=== PATIENT | male | born 1955 | race Caucasian/White ===

== ENCOUNTER 2021-01-02 06:17 | Inpatient (IN) ==
[2021-01-02] MEDS ORDERED: CeFAZolin Syr 2,000MG/20 ML 2,000 MG/20 ML SYRINGE IVPB ONE (06:39)
[2021-01-02] MEDS ORDERED: Ringers Solution, Lactated 1,000 ML IVC SCH (06:45)
[2021-01-02] MEDS ORDERED: *HR* Methadone 10 MG TABLET PO ONE (07:00)
[2021-01-02] MEDS ORDERED: Famotidine 20 MG/2 ML VIAL IVP ONE (07:00)
[2021-01-02] MEDS ORDERED: Acetaminophen IV 1,000 MG/100 ML BAG IVPB ONE (07:00)
[2021-01-02] MEDS ORDERED: *HR* Succinylcholine 200 MG/10 ML VIAL IVP ONE (07:16)
[2021-01-02] MEDS ORDERED: Lidocaine -MPF 2% 2 ML VIAL ONE ×2 (07:16)
[2021-01-02] MEDS ORDERED: *HR* Propofol 200 MG/20 ML VIAL IVP ONE (07:16)
[2021-01-02] MEDS ORDERED: Ondansetron 4 MG/2 ML VIAL ONE (07:16)
[2021-01-02] MEDS ORDERED: *HR* FentaNYL (PF) 100 MCG/2 ML VIAL ONE (07:16)
[2021-01-02] MEDS ORDERED: *HR* Rocuronium Bromide 50 MG/5 ML VIAL ONE (07:16)
[2021-01-02] MEDS ORDERED: Lidocaine HCL 4 ML Topical Solution (Laryng-O-Jet Kit Sterile Pak) TP ONE (07:16)
[2021-01-02] MEDS ORDERED: *HR* Midazolam HCl 2 MG/2 ML VIAL ONE (07:16)
[2021-01-02] MEDS ORDERED: *HR* Phenylephrine 10 MG/ML VIAL ONE (07:16)
[2021-01-02] MEDS ORDERED: Dexamethasone 4 MG/ML VIAL ONE (07:16)
[2021-01-02] MEDS ORDERED: *HR* Remifentanil 1 MG VIAL IVP ONE ×3 (07:17→11:20)
[2021-01-02] MEDS ORDERED: Lacri-Lube 3.5 GM TUBE ONE (07:20)
[2021-01-02] MEDS ORDERED: Heparin 1,000 UNITS/500 mL 500 ML ONE (07:33)
[2021-01-02] MEDS ORDERED: Bacitracin 50,000 UNIT, Polymyxin B Sulfate 500,000 UNIT, Sodium Chloride IRRigation 1,... IR ONE (07:45)
[2021-01-02] MEDS ORDERED: *HR* PHENYLEPHRINE 1,000 MCG/10 ML SYRINGE IVP ONE ×2 (08:16→11:11)
[2021-01-02] MEDS ORDERED: *HR* Labetalol 20 MG/4 ML SYRINGE IVP ONE (12:00)
[2021-01-02] MEDS ORDERED: Ondansetron 4 MG/2 ML VIAL IVP PRN ×2 (13:11→15:56)
[2021-01-02] MEDS ORDERED: *HR* Midazolam HCl 2 MG/2 ML VIAL IVP PRN (13:11)
[2021-01-02] MEDS ORDERED: *HR* Midazolam HCl 5 MG/5 ML VIAL IVP ONE (13:14)
[2021-01-02] MEDS: *HR* HYDROmorphone (PF) 1 MG/ML SYRINGE IVP PRN ×4 (13:15→14:00)
[2021-01-02] MEDS ORDERED: Insulin Human Regular 20 UNIT in 0.9 % Sodium Chloride 10 ML IV ONE ×2 (13:29→14:40)
[2021-01-02] MEDS ORDERED: Naloxone 0.4 MG/ML INJ IVP PRN (15:56)
[2021-01-02] MEDS ORDERED: Acetaminophen 325 MG TABLET PO PRN (15:56)
[2021-01-02] MEDS ORDERED: D5% in Water 1,000 ML IVC PRN (16:24)
[2021-01-02] MEDS ORDERED: Dextrose Gel 15 GM/37.5 ML TUBE PO PRN ×2 (16:24)
[2021-01-02] MEDS ORDERED: *HR* Dextrose 50 % in Water (Vial) 50 ML VIAL IVP PRN (16:24)
[2021-01-02 17:20] LABS: Basophils % 0.1 %; Eosinophils % 0.1 %; Lymphocytes # 1.1 K/mcL (0.6-4.6); Lymphocytes % 7.8 %; Mean Corpuscular HGB Conc 32.7 g/dL (31.6-35.5); Mean Corpuscular Hemoglobin 28.2 pg (28.0-33.3); Mean Corpuscular Volume 86.4 fL (83.0-100.0); Mean Platelet Volume 11.1 fL (9.4-12.4); Monocytes % 11.4 %; Neutrophils # 10.8 K/mcL (1.6-8.9); Platelet Count 169 K/mcL (140-400); Red Blood Count 3.01 M/mcL (4.19-5.50); Red Cell Distribution Width 15.4 % (11.5-14.5); Segmented Neutrophils % 79.6 %
[2021-01-02 17:23] LABS: Hemoglobin 8.5 g/dL (12.9-16.9); Monocytes # 1.6 K/mcL (0.0-1.3); White Blood Count 13.6 K/mcL (4.3-11.1)
[2021-01-02] MEDS: CeFAZolin 2 GM/120 ML BAG IVPB SCH (17:23)
[2021-01-02] MEDS: Sucralfate 1 GM TABLET PO SCH ×2 (17:34→21:18)
[2021-01-02] MEDS: Insulin LISPRO 300 UNITS/3 ML VIAL SUBQ SCH ×2 (17:36→21:26)
[2021-01-02 17:56] LABS: BUN/Creatinine Ratio 16 (6-26); Blood Urea Nitrogen 22 mg/dL (8-23); Calcium 7.9 mg/dL (8.6-10.3); Carbon Dioxide 29 mEq/L (23-29); Chloride 102 mEq/L (98-107); Glucose 244 mg/dL (70-105); Osmolality,Calculated 295 (280-300); Potassium 3.8 mEq/L (3.5-5.1); Sodium 137 mEq/L (136-145); eGFR For African Americans > 60 (> 60); eGFR For Non-African Americans 53 (> 60)
[2021-01-02] MEDS ORDERED: 0.9 % Sodium Chloride 250 ML IVC SCH (19:00)
[2021-01-02] MEDS: Budesonide/Formoterol 160/4.5 1 PUFF INH IH SCH (20:44)
[2021-01-02] MEDS: 0.9 % Sodium Chloride 1,000 ML IVC ONE (20:44)
[2021-01-02] MEDS: Ipratropium/Albuterol Neb 3 ML IH PRN (20:44)
[2021-01-02] MEDS: Nystatin SUSP 5 ML UD.LIQ PO SCH (21:18)
[2021-01-02] MEDS: Morphine Sulfate ER (12 HR) 30 MG TABLET.ER PO SCH (21:19)
[2021-01-02] MEDS: Pregabalin 75 MG CAPSULE PO SCH (21:19)
[2021-01-03] MEDS: CeFAZolin 2 GM/120 ML BAG IVPB SCH (00:54)
[2021-01-03] MEDS: *HR* OxyCODONE Immed Rel 5 MG TABLET PO PRN ×3 (02:50→17:29)
[2021-01-03] MEDS ORDERED: diazePAM 5 MG TABLET PO PRN (05:10)
[2021-01-03] MEDS: Ipratropium/Albuterol Neb 3 ML IH PRN (05:16)
[2021-01-03 06:12] LABS: Basophils % 0.1 %; Hematocrit 32.4 % (37.5-50.1); Immature Granulocytes % 0.3 % (0-4); Lymphocytes # 1.4 K/mcL (0.6-4.6); Mean Corpuscular HGB Conc 33.3 g/dL (31.6-35.5); Mean Corpuscular Hemoglobin 28.5 pg (28.0-33.3); Mean Corpuscular Volume 85.5 fL (83.0-100.0); Mean Platelet Volume 11.4 fL (9.4-12.4); Monocytes # 1.8 K/mcL (0.0-1.3); Monocytes % 10.1 %; Neutrophils # 14.3 K/mcL (1.6-8.9); Platelet Count 186 K/mcL (140-400); Red Blood Count 3.79 M/mcL (4.19-5.50); Red Cell Distribution Width 15.3 % (11.5-14.5); Segmented Neutrophils % 81.5 %; White Blood Count 17.5 K/mcL (4.3-11.1)
[2021-01-03 06:13] LABS: Hemoglobin 10.8 g/dL (12.9-16.9)
[2021-01-03 06:30] LABS: BUN/Creatinine Ratio 18 (6-26); Blood Urea Nitrogen 21 mg/dL (8-23); Calcium 8.5 mg/dL (8.6-10.3); Carbon Dioxide 30 mEq/L (23-29); Chloride 100 mEq/L (98-107); Glucose 210 mg/dL (70-105); Osmolality,Calculated 295 (280-300); Potassium 3.8 mEq/L (3.5-5.1); Sodium 138 mEq/L (136-145); eGFR For African Americans > 60 (> 60); eGFR For Non-African Americans > 60 (> 60)
[2021-01-03] MEDS: Nystatin SUSP 5 ML UD.LIQ PO SCH ×2 (08:02→21:04)
[2021-01-03] MEDS: Cholecalciferol (D-3) 1,000 UNIT (25MCG) TABLET PO SCH (08:06)
[2021-01-03] MEDS: hydroCHLOROthiazide 25 MG TABLET PO SCH (08:06)
[2021-01-03] MEDS: Morphine Sulfate ER (12 HR) 30 MG TABLET.ER PO SCH ×2 (08:06→21:04)
[2021-01-03] MEDS: Sucralfate 1 GM TABLET PO SCH ×4 (08:06→21:04)
[2021-01-03] MEDS: Pregabalin 75 MG CAPSULE PO SCH ×2 (08:06→21:04)
[2021-01-03] MEDS: Insulin LISPRO 300 UNITS/3 ML VIAL SUBQ SCH ×4 (08:10→21:13)
[2021-01-03] MEDS: Budesonide/Formoterol 160/4.5 1 PUFF INH IH SCH ×2 (08:33→22:25)
[2021-01-03] MEDS: (Tofacitinib Citrate [Xeljanz Xr] 11 MG Tab.Er.24h) PO SCH (17:25)
[2021-01-03] MEDS: *HR* HYDROcodone/Acet 5/325 mg TABLET PO PRN (19:33)
[2021-01-04] MEDS: *HR* OxyCODONE Immed Rel 5 MG TABLET PO PRN ×2 (04:33→09:07)
[2021-01-04] MEDS: Budesonide/Formoterol 160/4.5 1 PUFF INH IH SCH ×2 (08:34→19:51)
[2021-01-04] MEDS: Pregabalin 75 MG CAPSULE PO SCH ×2 (08:59→21:41)
[2021-01-04] MEDS: Morphine Sulfate ER (12 HR) 30 MG TABLET.ER PO SCH ×2 (08:59→21:41)
[2021-01-04] MEDS: Cholecalciferol (D-3) 1,000 UNIT (25MCG) TABLET PO SCH (08:59)
[2021-01-04] MEDS: hydroCHLOROthiazide 25 MG TABLET PO SCH (08:59)
[2021-01-04] MEDS: Sucralfate 1 GM TABLET PO SCH ×4 (08:59→21:41)
[2021-01-04] MEDS: Insulin LISPRO 300 UNITS/3 ML VIAL SUBQ SCH ×5 (09:00→21:34)
[2021-01-04] MEDS: Nystatin SUSP 5 ML UD.LIQ PO SCH ×2 (09:02→21:41)
[2021-01-04] MEDS: (Tofacitinib Citrate [Xeljanz Xr] 11 MG Tab.Er.24h) PO SCH (09:17)
[2021-01-04 10:34] LABS: Basophils % 0.1 %; Eosinophils % 0.1 %; Hematocrit 30.1 % (37.5-50.1); Immature Granulocytes % 0.5 % (0-4); Lymphocytes # 0.7 K/mcL (0.6-4.6); Lymphocytes % 4.8 %; Mean Corpuscular HGB Conc 33.2 g/dL (31.6-35.5); Mean Corpuscular Hemoglobin 28.6 pg (28.0-33.3); Mean Platelet Volume 11.4 fL (9.4-12.4); Monocytes # 1.7 K/mcL (0.0-1.3); Monocytes % 11.2 %; Neutrophils # 12.4 K/mcL (1.6-8.9); Platelet Count 161 K/mcL (140-400); Segmented Neutrophils % 83.3 %; White Blood Count 14.9 K/mcL (4.3-11.1)
[2021-01-04 10:51] LABS: BUN/Creatinine Ratio 19 (6-26); Blood Urea Nitrogen 21 mg/dL (8-23); Calcium 8.6 mg/dL (8.6-10.3); Carbon Dioxide 24 mEq/L (23-29); Chloride 95 mEq/L (98-107); Glucose 329 mg/dL (70-105); Osmolality,Calculated 292 (280-300); Potassium 3.8 mEq/L (3.5-5.1); Sodium 133 mEq/L (136-145); eGFR For African Americans > 60 (> 60); eGFR For Non-African Americans > 60 (> 60)
[2021-01-04] MEDS: *HR* HYDROcodone/Acet 5/325 mg TABLET PO PRN (17:28)
[2021-01-04] MEDS ORDERED: Insulin DETEMIR 100 UNIT/ML X5UNITS SUBQ SCH (21:00)
[2021-01-04] MEDS ORDERED: Acetaminophen IV 1,000 MG/100 ML BAG IVPB PRN (21:49)
[2021-01-04] MEDS ORDERED: HYDROcodone BIT/Homatropine 5 MG TABLET PO PRN (21:51)
[2021-01-04] MEDS ORDERED: Trolamine Salicylate/Aloe Vera 85 APPL/85 GM TUBE TP PRN (21:54)
[2021-01-04] MEDS: Acetaminophen 325 MG TABLET PO SCH (23:58)
[2021-01-05 02:39] LABS: Basophils % 0.1 %; Eosinophils % 0.3 %; Hematocrit 27.4 % (37.5-50.1); Hemoglobin 9.2 g/dL (12.9-16.9); Immature Granulocytes % 0.5 % (0-4); Lymphocytes % 7.7 %; Mean Corpuscular HGB Conc 33.6 g/dL (31.6-35.5); Mean Corpuscular Hemoglobin 28.9 pg (28.0-33.3); Mean Corpuscular Volume 86.2 fL (83.0-100.0); Mean Platelet Volume 11.1 fL (9.4-12.4); Monocytes % 15.2 %; Platelet Count 149 K/mcL (140-400); Red Blood Count 3.18 M/mcL (4.19-5.50); Segmented Neutrophils % 76.2 %; White Blood Count 13.2 K/mcL (4.3-11.1)
[2021-01-05 03:01] LABS: Calcium 8.1 mg/dL (8.6-10.3); Potassium 3.8 mEq/L (3.5-5.1)
[2021-01-05] MEDS: Acetaminophen 325 MG TABLET PO SCH ×3 (06:03→17:00)
[2021-01-05] MEDS ORDERED: Insulin LISPRO 300 UNITS/3 ML VIAL SUBQ ONE (08:00)
[2021-01-05] MEDS: Budesonide/Formoterol 160/4.5 1 PUFF INH IH SCH ×2 (08:02→20:12)
[2021-01-05] MEDS ORDERED: 0.9 % Sodium Chloride 1,000 ML ONE (08:13)
[2021-01-05] MEDS: Sucralfate 1 GM TABLET PO SCH ×4 (08:25→20:04)
[2021-01-05] MEDS: hydroCHLOROthiazide 25 MG TABLET PO SCH (08:25)
[2021-01-05] MEDS: Morphine Sulfate ER (12 HR) 30 MG TABLET.ER PO SCH ×2 (08:30→20:02)
[2021-01-05] MEDS: Pregabalin 75 MG CAPSULE PO SCH ×2 (08:30→20:01)
[2021-01-05] MEDS: 0.9 % Sodium Chloride 1,000 ML IVC ONE (08:31)
[2021-01-05] MEDS: Nystatin SUSP 5 ML UD.LIQ PO SCH ×2 (08:31→20:01)
[2021-01-05] MEDS: Insulin LISPRO 300 UNITS/3 ML VIAL SUBQ SCH ×4 (08:33→19:52)
[2021-01-05] MEDS: Cholecalciferol (D-3) 1,000 UNIT (25MCG) TABLET PO SCH (08:37)
[2021-01-05] MEDS: (Tofacitinib Citrate [Xeljanz Xr] 11 MG Tab.Er.24h) PO SCH (08:53)
[2021-01-05] MEDS: Morphine Sulfate Immed Rel 15 MG TABLET PO PRN (09:00)
[2021-01-05] MEDS ORDERED: Insulin DETEMIR 100 UNIT/ML X5UNITS SUBQ SCH (09:00)
[2021-01-05] MEDS ORDERED: Insulin LISPRO 300 UNITS/3 ML VIAL SUBQ SCH (12:00)
[2021-01-05] MEDS: Insulin DETEMIR 100 UNIT/ML X5UNITS SUBQ SCH (20:01)
[2021-01-06] MEDS: Acetaminophen 325 MG TABLET PO SCH ×5 (00:31→23:49)
[2021-01-06 02:09] LABS: Basophils % 0.2 %; Eosinophils # 0.1 K/mcL (0.0-0.6); Eosinophils % 1.3 %; Hematocrit 24.6 % (37.5-50.1); Hemoglobin 8.2 g/dL (12.9-16.9); Immature Granulocytes % 0.5 % (0-4); Lymphocytes % 10.4 %; Mean Corpuscular HGB Conc 33.3 g/dL (31.6-35.5); Mean Platelet Volume 11.4 fL (9.4-12.4); Monocytes # 1.4 K/mcL (0.0-1.3); Monocytes % 14.7 %; Neutrophils # 7.1 K/mcL (1.6-8.9); Platelet Count 157 K/mcL (140-400); Red Blood Count 2.93 M/mcL (4.19-5.50); Red Cell Distribution Width 14.9 % (11.5-14.5); Segmented Neutrophils % 72.9 %; White Blood Count 9.8 K/mcL (4.3-11.1)
[2021-01-06 02:26] LABS: Calcium 8.2 mg/dL (8.6-10.3); Potassium 3.5 mEq/L (3.5-5.1)
[2021-01-06] MEDS: 0.9 % Sodium Chloride 250 ML IVC SCH ×3 (03:58→12:18)
[2021-01-06] MEDS: Pregabalin 50 MG CAPSULE PO SCH ×2 (08:48→19:54)
[2021-01-06] MEDS: Morphine Sulfate ER (12 HR) 30 MG TABLET.ER PO SCH ×2 (08:48→19:52)
[2021-01-06] MEDS: Sucralfate 1 GM TABLET PO SCH ×4 (08:48→20:56)
[2021-01-06] MEDS: Cholecalciferol (D-3) 1,000 UNIT (25MCG) TABLET PO SCH (08:48)
[2021-01-06] MEDS: Insulin LISPRO 300 UNITS/3 ML VIAL SUBQ SCH ×4 (08:49→19:54)
[2021-01-06] MEDS: Insulin DETEMIR 100 UNIT/ML X5UNITS SUBQ SCH ×2 (08:49→20:56)
[2021-01-06] MEDS: Nystatin SUSP 5 ML UD.LIQ PO SCH ×2 (08:49→19:54)
[2021-01-06] MEDS: (Tofacitinib Citrate [Xeljanz Xr] 11 MG Tab.Er.24h) PO SCH (09:16)
[2021-01-06] MEDS ORDERED: Insulin DETEMIR 100 UNIT/ML X5UNITS SUBQ ONE (09:21)
[2021-01-06 10:21] LABS: Albumin 3.1 g/dL (3.5-5.7); Albumin/Globulin Ratio 1.1 (1.1-2.2); Bilirubin,Direct 0.1 mg/dL (0.0-0.2); Bilirubin,Indirect 0.5 mg/dL (0.0-1.0); Bilirubin,Total 0.6 mg/dL (0.3-1.0); Calcium 8.6 mg/dL (8.6-10.3); Globulin 2.9 g/dL (2.4-3.5); Potassium 3.1 mEq/L (3.5-5.1)
[2021-01-06] MEDS: Ipratropium/Albuterol Neb 3 ML IH PRN (10:22)
[2021-01-06] MEDS: Budesonide/Formoterol 160/4.5 1 PUFF INH IH SCH ×2 (10:22→23:12)
[2021-01-06] MEDS ORDERED: 0.9 % Sodium Chloride 250 ML IVC SCH (13:15)
[2021-01-06 13:18] LABS: Sodium, Urine 20.1 mEq/L
[2021-01-06 13:29] LABS: Benzodiazepines Screen,Urine Positive ng/mL (Cutoff=200)
[2021-01-06 13:31] LABS: Amphetamine Screen,Urine Negative ng/mL (Cutoff=1000); Barbiturate Screen,Urine Negative ng/mL (Cutoff=200); Cannabinoid Screen,Urine Negative ng/mL (Cutoff = 50); Cocaine Screen,Urine Negative ng/mL (Cutoff= 300); Opiate Screen,Urine Positive ng/mL (Cutoff=300); Phencyclidine Screen,Urine Negative ng/mL (Cutoff=25)
[2021-01-06 13:53] LABS: Bacteria,Urine Few per hpf (None-Few); Bilirubin,Urine Negative (Negative); Blood,Urine Trace (Negative); Clarity,Urine Clear (Clear); Color,Urine Yellow (Yellow); Glucose,Urine (UA) 50 mg/dL (Normal); Hyaline Casts,Urine Moderate per lpf (None Seen); Ketones,Urine Trace mg/dL (Negative); Leukocyte Esterase,Urine Negative (Negative); Mucus,Urine Few per lpf (None-Few); Nitrite,Urine Negative (Negative); PH,Urine 5.5 pH Units (5.0-8.0); Protein,Urine 30 mg/dL (Neg-Trace); RBC,Urine 15-30 per hpf (0-3); Specific Gravity,Urine 1.018 (1.010-1.025); Squamous Epithelial Cell,Urine Few per hpf (None-Few); Urobilinogen,Urine Normal (Normal)
[2021-01-06] MEDS ORDERED: 0.9 % Sodium Chloride 1,000 ML IVC ONE (15:23)
[2021-01-06] MEDS ORDERED: Ringers Solution, Lactated 1,000 ML IVC SCH (15:45)
[2021-01-06] MEDS: Ipratropium/Albuterol Neb 3 ML IH SCH ×2 (15:54→23:12)
[2021-01-06 17:04] LABS: Hematocrit 26.7 % (37.5-50.1); Hemoglobin 8.9 g/dL (12.9-16.9)
[2021-01-06] MEDS ORDERED: Acetaminophen IV 1,000 MG/100 ML BAG IVPB PRN (18:00)
[2021-01-07 01:10] LABS: Hematocrit 24.1 % (37.5-50.1); Hemoglobin 8.1 g/dL (12.9-16.9); Mean Corpuscular HGB Conc 33.6 g/dL (31.6-35.5); Mean Corpuscular Hemoglobin 28.1 pg (28.0-33.3); Mean Corpuscular Volume 83.7 fL (83.0-100.0); Mean Platelet Volume 11.1 fL (9.4-12.4); Platelet Count 164 K/mcL (140-400); Red Blood Count 2.88 M/mcL (4.19-5.50); Red Cell Distribution Width 14.9 % (11.5-14.5); White Blood Count 6.2 K/mcL (4.3-11.1)
[2021-01-07 01:25] LABS: Calcium 8.2 mg/dL (8.6-10.3); Potassium 3.4 mEq/L (3.5-5.1)
[2021-01-07] MEDS: Ringers Solution, Lactated 1,000 ML IVC SCH ×2 (03:36→20:53)
[2021-01-07] MEDS: Ipratropium/Albuterol Neb 3 ML IH SCH ×5 (04:05→22:39)
[2021-01-07] MEDS: Acetaminophen 325 MG TABLET PO SCH ×3 (05:30→18:05)
[2021-01-07] MEDS ORDERED: cefTRIAXone 1,000 MG in 0.9 % Sodium Chloride Mini Bag 100 ML IVPB ONE (07:54)
[2021-01-07] MEDS ORDERED: cefTRIAXone 1,000 MG in Water for inj. (sterile) 10 ML IVP ONE (08:05)
[2021-01-07] MEDS: Budesonide/Formoterol 160/4.5 1 PUFF INH IH SCH ×2 (08:13→22:30)
[2021-01-07] MEDS: Pregabalin 50 MG CAPSULE PO SCH ×2 (11:13→20:47)
[2021-01-07] MEDS: Morphine Sulfate ER (12 HR) 30 MG TABLET.ER PO SCH (11:13)
[2021-01-07] MEDS: QUEtiapine Fumarate 25 MG TABLET PO SCH ×2 (11:13→20:47)
[2021-01-07] MEDS: Cholecalciferol (D-3) 1,000 UNIT (25MCG) TABLET PO SCH (11:13)
[2021-01-07] MEDS: Sucralfate 1 GM TABLET PO SCH ×4 (11:14→20:48)
[2021-01-07] MEDS: Nystatin SUSP 5 ML UD.LIQ PO SCH ×2 (11:14→20:48)
[2021-01-07] MEDS: Insulin DETEMIR 100 UNIT/ML X5UNITS SUBQ SCH ×2 (11:28→20:48)
[2021-01-07] MEDS: Insulin LISPRO 300 UNITS/3 ML VIAL SUBQ SCH ×4 (11:29→20:43)
[2021-01-07] MEDS ORDERED: Haloperidol Lactate 5 MG/ML VIAL IVP ONE (12:27)
[2021-01-07] MEDS: (Tofacitinib Citrate [Xeljanz Xr] 11 MG Tab.Er.24h) PO SCH (14:00)
[2021-01-07] MEDS: Haloperidol Lactate 5 MG/ML VIAL IVP PRN (20:55)
[2021-01-07] MEDS: Morphine Sulfate Immed Rel 15 MG TABLET PO PRN (23:42)
[2021-01-08] MEDS: Acetaminophen 325 MG TABLET PO SCH ×4 (02:22→20:58)
[2021-01-08] MEDS: Ipratropium/Albuterol Neb 3 ML IH SCH ×4 (04:30→22:02)
[2021-01-08 06:03] LABS: Basophils % 0.1 %; Eosinophils # 0.1 K/mcL (0.0-0.6); Eosinophils % 1.2 %; Hematocrit 25.6 % (37.5-50.1); Hemoglobin 8.6 g/dL (12.9-16.9); Immature Granulocytes % 0.3 % (0-4); Lymphocytes # 1.2 K/mcL (0.6-4.6); Lymphocytes % 17.8 %; Mean Corpuscular HGB Conc 33.6 g/dL (31.6-35.5); Mean Corpuscular Hemoglobin 28.4 pg (28.0-33.3); Mean Corpuscular Volume 84.5 fL (83.0-100.0); Mean Platelet Volume 10.5 fL (9.4-12.4); Monocytes # 1.1 K/mcL (0.0-1.3); Monocytes % 16.8 %; Neutrophils # 4.3 K/mcL (1.6-8.9); Platelet Count 221 K/mcL (140-400); Red Blood Count 3.03 M/mcL (4.19-5.50); Red Cell Distribution Width 15.2 % (11.5-14.5); Segmented Neutrophils % 63.8 %; White Blood Count 6.7 K/mcL (4.3-11.1)
[2021-01-08] MEDS: Insulin LISPRO 300 UNITS/3 ML VIAL SUBQ SCH ×4 (06:49→21:00)
[2021-01-08 06:51] LABS: BUN/Creatinine Ratio 33 (6-26); Blood Urea Nitrogen 31 mg/dL (8-23); Calcium 8.9 mg/dL (8.6-10.3); Carbon Dioxide 31 mEq/L (23-29); Chloride 107 mEq/L (98-107); Glucose 36 mg/dL (70-105); Osmolality,Calculated 299 (280-300); Sodium 143 mEq/L (136-145); eGFR For African Americans > 60 (> 60); eGFR For Non-African Americans > 60 (> 60)
[2021-01-08] MEDS: Nystatin SUSP 5 ML UD.LIQ PO SCH ×2 (09:28→20:54)
[2021-01-08] MEDS: Cholecalciferol (D-3) 1,000 UNIT (25MCG) TABLET PO SCH (09:29)
[2021-01-08] MEDS: Sucralfate 1 GM TABLET PO SCH ×4 (09:29→20:54)
[2021-01-08] MEDS: Pregabalin 50 MG CAPSULE PO SCH ×2 (09:29→20:54)
[2021-01-08] MEDS: (Tofacitinib Citrate [Xeljanz Xr] 11 MG Tab.Er.24h) PO SCH (09:30)
[2021-01-08] MEDS: QUEtiapine Fumarate 25 MG TABLET PO SCH ×2 (09:30→20:54)
[2021-01-08] MEDS: Budesonide/Formoterol 160/4.5 1 PUFF INH IH SCH ×2 (09:43→22:02)
[2021-01-08 14:08] LABS: Creatinine,Urine 183 mg/dL
[2021-01-08] MEDS: Morphine Sulfate Immed Rel 15 MG TABLET PO PRN (14:20)
[2021-01-08] MEDS: Haloperidol Lactate 5 MG/ML VIAL IVP PRN (14:56)
[2021-01-08] MEDS: Ringers Solution, Lactated 1,000 ML IVC SCH (16:23)
[2021-01-08] MEDS: Insulin DETEMIR 100 UNIT/ML X5UNITS SUBQ SCH ×2 (20:02→20:54)
[2021-01-08] MEDS ORDERED: *HR* HYDROcodone/Acet 5/325 mg TABLET PO ONE (20:24)
[2021-01-09 01:37] LABS: Basophils % 0.3 %; Eosinophils # 0.1 K/mcL (0.0-0.6); Eosinophils % 0.8 %; Hematocrit 25.2 % (37.5-50.1); Hemoglobin 8.2 g/dL (12.9-16.9); Immature Granulocytes % 0.4 % (0-4); Lymphocytes # 1.1 K/mcL (0.6-4.6); Lymphocytes % 13.4 %; Mean Corpuscular HGB Conc 32.5 g/dL (31.6-35.5); Mean Corpuscular Hemoglobin 27.3 pg (28.0-33.3); Mean Platelet Volume 10.4 fL (9.4-12.4); Monocytes # 1.3 K/mcL (0.0-1.3); Monocytes % 16.8 %; Neutrophils # 5.4 K/mcL (1.6-8.9); Platelet Count 218 K/mcL (140-400); Red Cell Distribution Width 15.2 % (11.5-14.5); Segmented Neutrophils % 68.3 %; White Blood Count 7.9 K/mcL (4.3-11.1)
[2021-01-09 01:49] LABS: BUN/Creatinine Ratio 20 (6-26); Blood Urea Nitrogen 16 mg/dL (8-23); Carbon Dioxide 32 mEq/L (23-29); Chloride 104 mEq/L (98-107); Glucose 55 mg/dL (70-105); Osmolality,Calculated 293 (280-300); Potassium 3.4 mEq/L (3.5-5.1); Sodium 142 mEq/L (136-145); eGFR For African Americans > 60 (> 60); eGFR For Non-African Americans > 60 (> 60)
[2021-01-09] MEDS: Acetaminophen 325 MG TABLET PO SCH ×4 (02:09→21:03)
[2021-01-09] MEDS: Morphine Sulfate Immed Rel 15 MG TABLET PO PRN ×2 (02:11→17:32)
[2021-01-09] MEDS: Ipratropium/Albuterol Neb 3 ML IH SCH ×4 (03:45→21:21)
[2021-01-09] MEDS: Nystatin SUSP 5 ML UD.LIQ PO SCH ×2 (08:47→21:05)
[2021-01-09] MEDS: QUEtiapine Fumarate 25 MG TABLET PO SCH ×2 (08:47→21:05)
[2021-01-09] MEDS: Pregabalin 50 MG CAPSULE PO SCH ×2 (08:47→21:04)
[2021-01-09] MEDS: Insulin LISPRO 300 UNITS/3 ML VIAL SUBQ SCH ×4 (08:48→20:54)
[2021-01-09] MEDS: Cholecalciferol (D-3) 1,000 UNIT (25MCG) TABLET PO SCH (08:48)
[2021-01-09] MEDS: Sucralfate 1 GM TABLET PO SCH ×4 (08:48→21:05)
[2021-01-09] MEDS: Insulin DETEMIR 100 UNIT/ML X5UNITS SUBQ SCH ×2 (08:49→20:55)
[2021-01-09] MEDS: (Tofacitinib Citrate [Xeljanz Xr] 11 MG Tab.Er.24h) PO SCH (08:51)
[2021-01-09] MEDS: Budesonide/Formoterol 160/4.5 1 PUFF INH IH SCH ×2 (10:44→21:22)
[2021-01-09] MEDS: Cefepime HCl 2,000 MG in 0.9 % Sodium Chloride Mini Bag 100 ML IVPB SCH ×3 (10:51→15:51)
[2021-01-09] MEDS: Haloperidol Lactate 5 MG/ML VIAL IVP PRN (20:45)
[2021-01-09 21:04] LABS: Hematocrit 30.1 % (37.5-50.1); Hemoglobin 9.7 g/dL (12.9-16.9)
[2021-01-10] MEDS: Cefepime HCl 2,000 MG in 0.9 % Sodium Chloride Mini Bag 100 ML IVPB SCH ×2 (00:47→14:15)
[2021-01-10] MEDS: Acetaminophen 325 MG TABLET PO SCH ×4 (03:36→21:46)
[2021-01-10] MEDS: Ipratropium/Albuterol Neb 3 ML IH SCH ×4 (04:24→23:58)
[2021-01-10] MEDS: Morphine Sulfate Immed Rel 15 MG TABLET PO PRN (04:57)
[2021-01-10 05:03] LABS: BUN/Creatinine Ratio 17 (6-26); Blood Urea Nitrogen 16 mg/dL (8-23); Calcium 8.4 mg/dL (8.6-10.3); Carbon Dioxide 30 mEq/L (23-29); Chloride 103 mEq/L (98-107); Glucose 145 mg/dL (70-105); Osmolality,Calculated 296 (280-300); Potassium 3.4 mEq/L (3.5-5.1); Sodium 141 mEq/L (136-145); eGFR For African Americans > 60 (> 60); eGFR For Non-African Americans > 60 (> 60)
[2021-01-10 05:10] LABS: Basophils % 0.1 %; Eosinophils # 0.1 K/mcL (0.0-0.6); Eosinophils % 1.2 %; Hematocrit 27.8 % (37.5-50.1); Hemoglobin 9.1 g/dL (12.9-16.9); Immature Granulocytes % 0.6 % (0-4); Lymphocytes % 14.1 %; Mean Corpuscular HGB Conc 32.7 g/dL (31.6-35.5); Mean Corpuscular Hemoglobin 28.3 pg (28.0-33.3); Mean Corpuscular Volume 86.3 fL (83.0-100.0); Mean Platelet Volume 10.6 fL (9.4-12.4); Monocytes # 1.1 K/mcL (0.0-1.3); Monocytes % 15.9 %; Neutrophils # 4.6 K/mcL (1.6-8.9); Platelet Count 248 K/mcL (140-400); Red Blood Count 3.22 M/mcL (4.19-5.50); Red Cell Distribution Width 15.3 % (11.5-14.5); Segmented Neutrophils % 68.1 %; White Blood Count 6.7 K/mcL (4.3-11.1)
[2021-01-10] MEDS: Haloperidol Lactate 5 MG/ML VIAL IVP PRN (08:16)
[2021-01-10] MEDS: QUEtiapine Fumarate 25 MG TABLET PO SCH ×2 (08:17→21:46)
[2021-01-10] MEDS: Sucralfate 1 GM TABLET PO SCH ×4 (08:17→21:46)
[2021-01-10] MEDS: Pregabalin 50 MG CAPSULE PO SCH ×2 (08:17→21:46)
[2021-01-10] MEDS: Cholecalciferol (D-3) 1,000 UNIT (25MCG) TABLET PO SCH (08:17)
[2021-01-10] MEDS: Nystatin SUSP 5 ML UD.LIQ PO SCH ×2 (08:17→21:45)
[2021-01-10] MEDS: (Tofacitinib Citrate [Xeljanz Xr] 11 MG Tab.Er.24h) PO SCH (08:18)
[2021-01-10] MEDS: Insulin DETEMIR 100 UNIT/ML X5UNITS SUBQ SCH ×2 (08:27→21:45)
[2021-01-10] MEDS: Insulin LISPRO 300 UNITS/3 ML VIAL SUBQ SCH ×4 (08:27→21:41)
[2021-01-10] MEDS: Budesonide/Formoterol 160/4.5 1 PUFF INH IH SCH ×2 (09:57→23:58)
[2021-01-10] MEDS ORDERED: Potassium Chloride Elixir 20 MEQ/15 ML UDC PO ONE (11:18)
[2021-01-11] MEDS: Acetaminophen 325 MG TABLET PO SCH ×2 (01:05→08:35)
[2021-01-11] MEDS: Cefepime HCl 2,000 MG in 0.9 % Sodium Chloride Mini Bag 100 ML IVPB SCH ×2 (01:21→12:57)
[2021-01-11] MEDS: Haloperidol Lactate 5 MG/ML VIAL IVP PRN ×2 (01:40→12:06)
[2021-01-11] MEDS: Ipratropium/Albuterol Neb 3 ML IH SCH ×2 (03:13→11:11)
[2021-01-11 04:14] LABS: Basophils % 0.3 %; Eosinophils # 0.1 K/mcL (0.0-0.6); Eosinophils % 2.1 %; Hematocrit 27.4 % (37.5-50.1); Hemoglobin 9.1 g/dL (12.9-16.9); Immature Granulocytes % 0.7 % (0-4); Lymphocytes # 1.2 K/mcL (0.6-4.6); Lymphocytes % 18.5 %; Mean Corpuscular HGB Conc 33.2 g/dL (31.6-35.5); Mean Corpuscular Hemoglobin 28.5 pg (28.0-33.3); Mean Corpuscular Volume 85.9 fL (83.0-100.0); Mean Platelet Volume 10.2 fL (9.4-12.4); Monocytes # 1.2 K/mcL (0.0-1.3); Monocytes % 17.7 %; Neutrophils # 4.1 K/mcL (1.6-8.9); Platelet Count 252 K/mcL (140-400); Red Blood Count 3.19 M/mcL (4.19-5.50); Red Cell Distribution Width 15.1 % (11.5-14.5); Segmented Neutrophils % 60.7 %; White Blood Count 6.7 K/mcL (4.3-11.1)
[2021-01-11 04:35] LABS: BUN/Creatinine Ratio 12 (6-26); Blood Urea Nitrogen 9 mg/dL (8-23); Carbon Dioxide 30 mEq/L (23-29); Chloride 103 mEq/L (98-107); Glucose 182 mg/dL (70-105); Osmolality,Calculated 291 (280-300); Sodium 139 mEq/L (136-145); eGFR For African Americans > 60 (> 60); eGFR For Non-African Americans > 60 (> 60)
[2021-01-11] MEDS ORDERED: Potassium Chloride 40 MEQ, Lidocaine 1% 2 ML in 0.9 % Sodium Chloride 500 ML IVPB ONE (07:44)
[2021-01-11] MEDS ORDERED: Potassium Chloride Elixir 20 MEQ/15 ML UDC PO ONE (07:44)
[2021-01-11] MEDS: Insulin LISPRO 300 UNITS/3 ML VIAL SUBQ SCH ×2 (08:19→12:07)
[2021-01-11] MEDS: Nystatin SUSP 5 ML UD.LIQ PO SCH (08:34)
[2021-01-11] MEDS: Cholecalciferol (D-3) 1,000 UNIT (25MCG) TABLET PO SCH (08:34)
[2021-01-11] MEDS: Pregabalin 50 MG CAPSULE PO SCH (08:35)
[2021-01-11] MEDS: QUEtiapine Fumarate 25 MG TABLET PO SCH (08:35)
[2021-01-11] MEDS: Sucralfate 1 GM TABLET PO SCH ×2 (08:35→12:06)
[2021-01-11] MEDS: (Tofacitinib Citrate [Xeljanz Xr] 11 MG Tab.Er.24h) PO SCH (08:46)
[2021-01-11] MEDS: Insulin DETEMIR 100 UNIT/ML X5UNITS SUBQ SCH (08:50)
[2021-01-11] MEDS: Budesonide/Formoterol 160/4.5 1 PUFF INH IH SCH (11:11)
[2021-01-11 12:04] VITALS: BP 156/75
== END 2021-01-11 14:10 | disposition home health service (06) | DRG 453 ==
LOC: SAMDAY 06:17 → 3NENU 06:17 → SAMDAY 16:19 → 3NENU 16:19 → SUATTDRO 01-07 22:11
PROVIDERS: ADMIT Orthopaedic Surgery Orthopaedic Surgery of the Spine; ATTEND Internal Medicine

== ENCOUNTER 2021-03-27 03:14 | Inpatient (IN) ==
[2021-03-27] MEDS ORDERED: Ondansetron 4 MG/2 ML VIAL IVP PRN (05:21)
[2021-03-27] MEDS ORDERED: Acetaminophen 325 MG TABLET PO PRN (05:21)
[2021-03-27] MEDS ORDERED: Melatonin 3 MG TABLET PO PRN (05:21)
[2021-03-27] MEDS ORDERED: Naloxone 0.4 MG/ML INJ IVP PRN (05:21)
[2021-03-27] MEDS: Ringers Solution, Lactated 1,000 ML IVC SCH ×3 (06:04→15:16)
[2021-03-27] MEDS: Ipratropium/Albuterol Neb 3 ML IH PRN (06:07)
[2021-03-27 06:40] LABS: Basophils % 0.4 %; Eosinophils # 0.1 K/mcL (0.0-0.6); Eosinophils % 1.3 %; Hematocrit 33.1 % (37.5-50.1); Hemoglobin 10.5 g/dL (12.9-16.9); Immature Granulocytes % 0.3 % (0-4); Lymphocytes # 0.9 K/mcL (0.6-4.6); Lymphocytes % 8.2 %; Mean Corpuscular HGB Conc 31.7 g/dL (31.6-35.5); Mean Corpuscular Hemoglobin 26.8 pg (28.0-33.3); Mean Corpuscular Volume 84.4 fL (83.0-100.0); Mean Platelet Volume 10.9 fL (9.4-12.4); Monocytes # 1.3 K/mcL (0.0-1.3); Monocytes % 11.8 %; Neutrophils # 8.6 K/mcL (1.6-8.9); Platelet Count 237 K/mcL (140-400); Red Blood Count 3.92 M/mcL (4.19-5.50); Red Cell Distribution Width 15.5 % (11.5-14.5)
[2021-03-27 06:47] LABS: INR 1.1; Prothrombin Time 12.6 Seconds (9.4-12.1)
[2021-03-27 07:01] LABS: Albumin 2.9 g/dL (3.5-5.7); Bilirubin,Total 0.6 mg/dL (0.3-1.0); Magnesium 1.7 mg/dL (1.6-2.6); Potassium 4.9 mEq/L (3.5-5.1); Total Protein 5.9 g/dL (6.4-8.9)
[2021-03-27] MEDS: Budesonide/Formoterol 160/4.5 1 PUFF INH IH SCH ×2 (07:19→19:50)
[2021-03-27] MEDS ORDERED: Dextrose Gel 15 GM/37.5 ML TUBE PO PRN ×2 (07:45)
[2021-03-27] MEDS ORDERED: *HR* Dextrose 50 % in Water (Vial) 50 ML VIAL IVP PRN (07:45)
[2021-03-27] MEDS ORDERED: D5% in Water 1,000 ML IVC PRN (07:45)
[2021-03-27] MEDS ORDERED: cloNIDine HCL 0.1 MG TABLET PO PRN (07:45)
[2021-03-27] MEDS: *HR* LORazepam 2 MG/ML VIAL IVP PRN ×2 (10:35→18:14)
[2021-03-27] MEDS: Insulin LISPRO 300 UNITS/3 ML VIAL SUBQ SCH ×2 (11:56→19:33)
[2021-03-27 19:22] LABS: Hematocrit 37.1 % (37.5-50.1); Hemoglobin 11.6 g/dL (12.9-16.9)
[2021-03-27] MEDS: Pregabalin 75 MG CAPSULE PO SCH (19:33)
[2021-03-27] MEDS ORDERED: Haloperidol Lactate 5 MG/ML VIAL IVP ONE (22:46)
[2021-03-28] MEDS ORDERED: Haloperidol Lactate 5 MG/ML VIAL IVP ONE (00:05)
[2021-03-28] MEDS: Ringers Solution, Lactated 1,000 ML IVC SCH ×2 (00:22→15:41)
[2021-03-28] MEDS: Insulin LISPRO 300 UNITS/3 ML VIAL SUBQ SCH ×4 (00:24→18:16)
[2021-03-28] MEDS: Dexmedetomidine HCl 400 MCG/100 ML MLS IVC SCH ×2 (01:44→11:53)
[2021-03-28 05:13] LABS: Basophils % 0.2 %; Eosinophils % 0.2 %; Hematocrit 35.3 % (37.5-50.1); Hemoglobin 11.3 g/dL (12.9-16.9); Immature Granulocytes % 0.5 % (0-4); Lymphocytes # 0.8 K/mcL (0.6-4.6); Lymphocytes % 6.5 %; Mean Corpuscular Volume 84.4 fL (83.0-100.0); Mean Platelet Volume 11.8 fL (9.4-12.4); Monocytes # 0.9 K/mcL (0.0-1.3); Monocytes % 7.9 %; Neutrophils # 9.9 K/mcL (1.6-8.9); Platelet Count 273 K/mcL (140-400); Red Blood Count 4.18 M/mcL (4.19-5.50); Red Cell Distribution Width 15.4 % (11.5-14.5); Segmented Neutrophils % 84.7 %; White Blood Count 11.7 K/mcL (4.3-11.1)
[2021-03-28 05:37] LABS: Calcium 8.8 mg/dL (8.6-10.3); Potassium 5.5 mEq/L (3.5-5.1)
[2021-03-28] MEDS: Budesonide/Formoterol 160/4.5 1 PUFF INH IH SCH ×2 (07:27→19:50)
[2021-03-28] MEDS: Pregabalin 75 MG CAPSULE PO SCH ×2 (09:00→19:35)
[2021-03-28] MEDS: Insulin DETEMIR 100 UNIT/ML X5UNITS SUBQ SCH ×2 (09:01→20:20)
[2021-03-28] MEDS: *HR* Heparin 5,000 UNIT/ML VIAL SQ SCH (17:07)
[2021-03-28] MEDS: *HR* LORazepam 2 MG/ML VIAL IVP PRN ×2 (19:36→23:44)
[2021-03-29] MEDS: Insulin LISPRO 300 UNITS/3 ML VIAL SUBQ SCH ×5 (00:12→23:31)
[2021-03-29 00:15] LABS: ABG Base Excess -2 mEq/L (-2 to 3); ABG HCO3 22 mEq/L (21-27); ABG Oxygen Saturation 95 % (95-98); ABG PCO2 32 mmHg (35-45); ABG PH 7.45 pH Units (7.32-7.45); ABG PO2 71 mmHg (85-104); ABG TCO2 23 mEq/L (20-26)
[2021-03-29] MEDS: Ringers Solution, Lactated 1,000 ML IVC SCH (03:52)
[2021-03-29] MEDS: *HR* LORazepam 2 MG/ML VIAL IVP PRN ×5 (03:52→22:24)
[2021-03-29 04:08] LABS: Basophils % 0.2 %; Eosinophils # 0.1 K/mcL (0.0-0.6); Eosinophils % 0.7 %; Hemoglobin 11.1 g/dL (12.9-16.9); Immature Granulocytes % 0.4 % (0-4); Lymphocytes # 1.8 K/mcL (0.6-4.6); Lymphocytes % 13.6 %; Mean Corpuscular HGB Conc 33.6 g/dL (31.6-35.5); Mean Corpuscular Hemoglobin 27.5 pg (28.0-33.3); Mean Corpuscular Volume 81.7 fL (83.0-100.0); Mean Platelet Volume 10.8 fL (9.4-12.4); Monocytes # 1.5 K/mcL (0.0-1.3); Monocytes % 11.6 %; Neutrophils # 9.6 K/mcL (1.6-8.9); Platelet Count 269 K/mcL (140-400); Red Blood Count 4.04 M/mcL (4.19-5.50); Red Cell Distribution Width 15.2 % (11.5-14.5); Segmented Neutrophils % 73.5 %; White Blood Count 13.1 K/mcL (4.3-11.1)
[2021-03-29 04:27] LABS: Calcium 8.9 mg/dL (8.6-10.3)
[2021-03-29] MEDS: *HR* Heparin 5,000 UNIT/ML VIAL SQ SCH ×2 (05:22→17:08)
[2021-03-29] MEDS: Budesonide/Formoterol 160/4.5 1 PUFF INH IH SCH ×2 (07:42→21:21)
[2021-03-29] MEDS: Insulin DETEMIR 100 UNIT/ML X5UNITS SUBQ SCH ×2 (08:09→20:26)
[2021-03-29] MEDS: Pregabalin 75 MG CAPSULE PO SCH ×2 (11:46→20:22)
[2021-03-29] MEDS: Dexmedetomidine HCl 400 MCG/100 ML MLS IVC SCH (15:53)
[2021-03-30 01:31] LABS: Bilirubin,Urine Negative (Negative); Blood,Urine Small (Negative); Clarity,Urine Clear (Clear); Color,Urine Light-Yellow (Yellow); Glucose,Urine (UA) 70 mg/dL (Normal); Ketones,Urine 80 mg/dL (Negative); Leukocyte Esterase,Urine Negative (Negative); Mucus,Urine Few per lpf (None-Few); Nitrite,Urine Negative (Negative); Protein,Urine Trace mg/dL (Neg-Trace); RBC,Urine 0-3 per hpf (0-3); Specific Gravity,Urine 1.015 (1.010-1.025); Urobilinogen,Urine Normal (Normal)
[2021-03-30 04:57] LABS: Basophils % 0.4 %; Eosinophils # 0.2 K/mcL (0.0-0.6); Hematocrit 36.3 % (37.5-50.1); Hemoglobin 11.6 g/dL (12.9-16.9); Immature Granulocytes % 0.3 % (0-4); Lymphocytes # 1.3 K/mcL (0.6-4.6); Lymphocytes % 17.3 %; Mean Corpuscular Hemoglobin 26.5 pg (28.0-33.3); Mean Corpuscular Volume 83.1 fL (83.0-100.0); Monocytes # 1.1 K/mcL (0.0-1.3); Monocytes % 14.4 %; Neutrophils # 4.8 K/mcL (1.6-8.9); Platelet Count 246 K/mcL (140-400); Red Blood Count 4.37 M/mcL (4.19-5.50); Red Cell Distribution Width 15.1 % (11.5-14.5); Segmented Neutrophils % 65.6 %; White Blood Count 7.3 K/mcL (4.3-11.1)
[2021-03-30 05:09] LABS: BUN/Creatinine Ratio 21 (6-26); Blood Urea Nitrogen 23 mg/dL (8-23); Calcium 8.2 mg/dL (8.6-10.3); Carbon Dioxide 23 mEq/L (23-29); Chloride 104 mEq/L (98-107); Creatine Kinase 678 Units/L (30-223); Glucose 232 mg/dL (70-105); Osmolality,Calculated 307 (280-300); Potassium 3.4 mEq/L (3.5-5.1); Sodium 143 mEq/L (136-145); eGFR For African Americans > 60 (> 60); eGFR For Non-African Americans > 60 (> 60)
[2021-03-30] MEDS: Insulin LISPRO 300 UNITS/3 ML VIAL SUBQ SCH ×4 (05:20→17:11)
[2021-03-30] MEDS: *HR* Heparin 5,000 UNIT/ML VIAL SQ SCH ×2 (05:22→17:08)
[2021-03-30] MEDS: *HR* LORazepam 2 MG/ML VIAL IVP PRN ×4 (07:44→21:07)
[2021-03-30] MEDS: Insulin DETEMIR 100 UNIT/ML X5UNITS SUBQ SCH ×2 (07:49→21:07)
[2021-03-30] MEDS: Budesonide/Formoterol 160/4.5 1 PUFF INH IH SCH ×2 (07:49→20:05)
[2021-03-30] MEDS: Pregabalin 75 MG CAPSULE PO SCH ×2 (13:55→19:41)
[2021-03-30] MEDS ORDERED: Thiamine (B-1) 100 MG in 0.9 % Sodium Chloride 50 ML IVPB ONE (14:00)
[2021-03-30] MEDS ORDERED: Cyanocobalamin (B-12) 1,000 MCG/ML VIAL IM ONE (14:00)
[2021-03-30] MEDS ORDERED: Potassium Chloride 40 MEQ, Lidocaine 1% 2 ML in 0.9 % Sodium Chloride 500 ML IVPB ONE (14:41)
[2021-03-30] MEDS: Dexmedetomidine HCl 400 MCG/100 ML MLS IVC SCH (22:20)
[2021-03-31] MEDS: Insulin LISPRO 300 UNITS/3 ML VIAL SUBQ SCH ×4 (00:23→17:38)
[2021-03-31] MEDS: *HR* LORazepam 2 MG/ML VIAL IVP PRN ×3 (01:08→19:57)
[2021-03-31] MEDS: *HR* Heparin 5,000 UNIT/ML VIAL SQ SCH ×2 (05:40→17:39)
[2021-03-31] MEDS: Pregabalin 75 MG CAPSULE PO SCH ×2 (07:16→20:00)
[2021-03-31] MEDS: Insulin DETEMIR 100 UNIT/ML X5UNITS SUBQ SCH ×2 (07:42→19:45)
[2021-03-31] MEDS: Budesonide/Formoterol 160/4.5 1 PUFF INH IH SCH ×2 (07:52→20:25)
[2021-03-31] MEDS: Dexmedetomidine HCl 400 MCG/100 ML MLS IVC SCH (07:54)
[2021-03-31 08:05] LABS: Basophils % 0.3 %; Eosinophils # 0.1 K/mcL (0.0-0.6); Eosinophils % 1.3 %; Hematocrit 39.5 % (37.5-50.1); Immature Granulocytes % 0.3 % (0-4); Lymphocytes # 1.7 K/mcL (0.6-4.6); Lymphocytes % 19.3 %; Mean Corpuscular HGB Conc 32.9 g/dL (31.6-35.5); Mean Platelet Volume 10.8 fL (9.4-12.4); Monocytes # 1.2 K/mcL (0.0-1.3); Monocytes % 13.7 %; Neutrophils # 5.8 K/mcL (1.6-8.9); Platelet Count 244 K/mcL (140-400); Red Blood Count 4.82 M/mcL (4.19-5.50); Red Cell Distribution Width 14.8 % (11.5-14.5); Segmented Neutrophils % 65.1 %; White Blood Count 8.9 K/mcL (4.3-11.1)
[2021-03-31 08:27] LABS: BUN/Creatinine Ratio 23 (6-26); Blood Urea Nitrogen 22 mg/dL (8-23); Calcium 8.7 mg/dL (8.6-10.3); Carbon Dioxide 24 mEq/L (23-29); Chloride 108 mEq/L (98-107); Glucose 135 mg/dL (70-105); Osmolality,Calculated 305 (280-300); Potassium 3.6 mEq/L (3.5-5.1); Sodium 145 mEq/L (136-145); eGFR For African Americans > 60 (> 60); eGFR For Non-African Americans > 60 (> 60)
[2021-03-31] MEDS: Ipratropium/Albuterol Neb 3 ML IH PRN (11:22)
[2021-04-01] MEDS: *HR* LORazepam 2 MG/ML VIAL IVP PRN ×2 (00:14→04:15)
[2021-04-01] MEDS: Insulin LISPRO 300 UNITS/3 ML VIAL SUBQ SCH ×3 (00:15→11:15)
[2021-04-01 04:19] LABS: Basophils # 0.1 K/mcL (0.0-0.2); Basophils % 0.5 %; Eosinophils # 0.1 K/mcL (0.0-0.6); Eosinophils % 0.7 %; Hematocrit 42.3 % (37.5-50.1); Hemoglobin 13.5 g/dL (12.9-16.9); Immature Granulocytes % 0.4 % (0-4); Lymphocytes # 1.7 K/mcL (0.6-4.6); Lymphocytes % 16.5 %; Mean Corpuscular HGB Conc 31.9 g/dL (31.6-35.5); Mean Corpuscular Hemoglobin 26.2 pg (28.0-33.3); Mean Corpuscular Volume 82.1 fL (83.0-100.0); Mean Platelet Volume 10.9 fL (9.4-12.4); Monocytes # 1.3 K/mcL (0.0-1.3); Monocytes % 12.7 %; Neutrophils # 7.2 K/mcL (1.6-8.9); Platelet Count 260 K/mcL (140-400); Red Blood Count 5.15 M/mcL (4.19-5.50); Red Cell Distribution Width 15.1 % (11.5-14.5); Segmented Neutrophils % 69.2 %; White Blood Count 10.4 K/mcL (4.3-11.1)
[2021-04-01 04:36] LABS: BUN/Creatinine Ratio 24 (6-26); Blood Urea Nitrogen 23 mg/dL (8-23); Calcium 9.1 mg/dL (8.6-10.3); Carbon Dioxide 23 mEq/L (23-29); Chloride 107 mEq/L (98-107); Glucose 134 mg/dL (70-105); Osmolality,Calculated 318 (280-300); Potassium 3.1 mEq/L (3.5-5.1); Sodium 151 mEq/L (136-145); eGFR For African Americans > 60 (> 60); eGFR For Non-African Americans > 60 (> 60)
[2021-04-01] MEDS: *HR* Heparin 5,000 UNIT/ML VIAL SQ SCH (06:51)
[2021-04-01] MEDS: Pregabalin 75 MG CAPSULE PO SCH (07:18)
[2021-04-01] MEDS: Insulin DETEMIR 100 UNIT/ML X5UNITS SUBQ SCH (07:21)
[2021-04-01] MEDS ORDERED: methylPREDNISolone 125 MG/2 ML VIAL IVP ONE (07:47)
[2021-04-01] MEDS: Budesonide/Formoterol 160/4.5 1 PUFF INH IH SCH (08:10)
[2021-04-01] MEDS ORDERED: Thiamine (B-1) 500 MG in 0.9 % Sodium Chloride 50 ML IVPB SCH (09:49)
[2021-04-01] MEDS ORDERED: Potassium Chloride 40 MEQ, Lidocaine 1% 2 ML in 0.9 % Sodium Chloride 500 ML IVPB ONE (13:23)
[2021-04-01] MEDS ORDERED: Acyclovir 750 MG in D5% in Water 250 ML IVPB SCH (14:00)
[2021-04-01] MEDS ORDERED: Morphine Sulfate 2 MG/ML SYRINGE IVP PRN (15:12)
[2021-04-01 16:19] VITALS: BP 146/112
[2021-04-01] MEDS ORDERED: MethylPREDNISolone 40 MG/ML VIAL IVP SCH (18:00)
== END 2021-04-01 18:45 | disposition short-term general hospital (02) | DRG 917 ==
LOC: 2NNU → SUATTDRO 04:57
PROVIDERS: ADMIT Internal Medicine; ATTEND Student in an Organized Health Care Education/Training Program